=== PATIENT | male | born 1990 | race Caucasian/White ===

== ENCOUNTER 2021-06-06 19:59 | Inpatient (IN) | payer MEDICAID, OTHER ==
[~2021-06-06] VITALS: Ht 188 cm; Wt 84.7 kg
--- NOTE | 2021-06-06 20:50 | NUR ---
PT STATING HIS MEDICAL WAS NOT APPROVED AND WHEN CHECKING WITH REGISTRATION THEY STATED IT WAS. STATED HE COULD PAY CASTRO.
--- NOTE | 2021-06-06 21:00 | NUR ---
PT SITTING OUTSIDE, PERIODICALLY GETS UP, REDIRECTED AND FOLLOWING DIRECTIONS.
--- NOTE | 2021-06-06 21:12 | NUR ---
PT COVID NEGATIVE, MOVED INSIDE. PT VERY COOPERATIVE AND PLEASANT. ALTHOUGH STATEMENTS ARE CONTRIDICTING.
[2021-06-06 22:05] LABS: BASOPHILS % (AUTO) 0.5 % (0-1); EOSINOPHILS # (AUTO) 0.1 X10'3 (0-0.9); EOSINOPHILS % (AUTO) 0.9 % (0-6); HEMOGLOBIN 14.8 g/dl (14.0-17.9); LYMPHOCYTES # (AUTO) 2.5 X10'3 (1.1-4.8); MEAN CORPUSCULAR HEMOGLOBIN 29.2 PG (27.0-31.0); MEAN CORPUSCULAR HGB CONC 34.5 g/dL (33.0-36.5); MEAN CORPUSCULAR VOLUME 84.7 FL (78-98); MEAN PLATELET VOLUME 6.9 FL (7.4-10.4); MONOCYTES # (AUTO) 0.6 X10'3 (0-0.9); MONOCYTES % (AUTO) 7.1 % (2-12); NEUTROPHILS # (AUTO) 4.9 X10'3 (1.8-7.7); NEUTROPHILS % (AUTO) 60.5 % (42-75); PLATELET COUNT 388 X10'3 (140-440); RED BLOOD COUNT 5.07 X10'6 (4.70-6.10); RED CELL DISTRIBUTION WIDTH 13.2 % (11.5-14.5); WHITE BLOOD COUNT 8.1 X10'3 (4.5-11.0)
[2021-06-06 22:36] LABS: ALANINE AMINOTRANSFERASE 39 U/L (12-78); ALBUMIN 4.3 G/DL (3.4-5.0); ALBUMIN/GLOBULIN RATIO 1.2 (1.1-1.5); ALKALINE PHOSPHATASE 84 IU/L (46-116); ANION GAP 11 (8-16); ASPARTATE AMINO TRANSFERASE 21 U/L (10-37); BILIRUBIN,TOTAL 0.6 MG/DL (0.1-1.0); BLOOD UREA NITROGEN 15 MG/DL (7-18); BUN/CREATININE RATIO 15.5 (5.4-32.0); CALCIUM 9.4 MG/DL (8.5-10.1); CHLORIDE 108 MMOL/L (99-107); CREATININE 0.97 MG/DL (0.60-1.10); ETHANOL < 0.010 GM/DL (0.0-0.010); GLUCOSE 96 MG/DL (70-104); POTASSIUM 4.6 MMOL/L (3.5-5.1); SODIUM 144 MMOL/L (135-145); TOTAL CARBON DIOXIDE 24.8 MMOL/L (24-32); TOTAL PROTEIN 7.9 G/DL (6.4-8.2); eGFR 90 ML/MIN
[2021-06-06] MEDS ORDERED: NO HOME MEDS (22:36)
--- NOTE | 2021-06-06 22:36 | NUR ---
The patient is a 30 year old male who was brought in on a 5150 for being a danger to himself. His family reports he appeared to be resonding to internal stimuli and that he had difficulty answering questions. The patient was cooperative with the assessment but his replies were very delayed and he admits to A/V hallucinations. He stated that he has been seeing ghosts. He also stated he feels confused. He reports drinking earlier in the evening. He stated that his father yesterday of covid. He reports being suicidal for the past 12 hours and his plan is to hang himself. He reports no food intake for past 3-5 days and he has not been sleeping for over a week. He estimated that he has had a total of 8 hours sleep in the last week. He denies prior psychiatric hospitalizations. He denies being on any medications.
[2021-06-06 22:37] LABS: URINE AMPHETAMINE SCREEN NEGATIVE (Neg); URINE BARBITUATE SCREEN NEGATIVE (Neg); URINE BENZODIAZEPINES SCREEN NEGATIVE (Neg); URINE CANNABINOID SCREEN NEGATIVE (Neg); URINE COCAINE SCREEN NEGATIVE (Neg); URINE METHADONE SCREEN NEGATIVE (Neg); URINE OPIATE SCREEN NEGATIVE (Neg); URINE PHENCYCLIDINE SCREEN NEGATIVE (Neg)
[2021-06-06] MEDS ORDERED: OLANZapine 5mg rapidly disint. tablet PO ONE (22:50)
--- NOTE | 2021-06-06 22:56 | NUR ---
Packet sent to [facility]
--- NOTE | 2021-06-06 23:34 | NUR ---
The patient appears to be sleeping at this time.
--- NOTE | 2021-06-07 00:38 | NUR ---
The patient appears to be sleeping
--- NOTE | 2021-06-07 02:46 | NUR ---
The patient appears to be sleeping
--- NOTE | 2021-06-07 03:57 | NUR ---
The patient appears to be sleeping
--- NOTE | 2021-06-07 05:32 | NUR ---
The patient appears to have slept during the night after taking Zyprexa Zydis
--- NOTE | 2021-06-07 19:31 | NUR ---
Pt awake reading in bed. Pleasant and cooperative denied any needs.
[2021-06-07] MEDS: OLANZAPINE 5 MG TABLET PO SCH (20:29)
--- NOTE | 2021-06-07 22:04 | NUR ---
Pt said he has taken Florien in the past but does not want to take it again. He agreed to take Zyprexa. Pt is aware of his diagnosis of Bipolar but he disagrees "My mood swings are the same as everybody has" Pt admits to hearing voices but said quietly "I don't feel comfortable describing them" Pt sleeping at this time.
--- NOTE | 2021-06-08 00:33 | NUR ---
Pt read for awhile before going to sleep. He appeared to continue to sleep through a very noisy confused pt.
--- NOTE | 2021-06-08 04:26 | NUR ---
Sleeping at this time.
--- NOTE | 2021-06-08 08:14 | NUR ---
0600 received report from Nicky FARLEY, patient resting at shift change, per Nicky FARLEY patient father most recently of Covid, racheln does have a MH history althought patient denies. Patient has taken [place] in the past but states it really was not for him. 0815n patient still resting in bed
--- NOTE | 2021-06-08 08:52 | NUR ---
0850 Patient sitting up in bed ate 100% of breakfast. Patient is oriented to name and that he is in a hospital only. When asked if he thought his food was posioned at home patient stated yes, when asked if he thought the food here was posioned, patient states no. Patient states that he is open to treatment although sleep helps a lot and he slept last night. When asked if he had any new medical issues patient states that he has a left side ulcer from doing leg lift before he arrived in the hospital. Patient has a long delay in answering questions.
--- NOTE | 2021-06-08 11:34 | NUR ---
Patient is sitting on side of bed starring at the ground, patientlooked up at this card writer hand with wide eyes and asked for some food that has wrapper on them, This card writer hand brought patient yogurt, wrapped sandwhich and wrapper crackers. Patient is actively eating.
--- NOTE | 2021-06-08 11:37 | NUR ---
Pateint is sitting on the side of his bed, just starring at the ground, patient stated that he is hungry and would like some wrapped food, this quality analyst/technical writer was able to get Rohit a wrapped sandwhich, crackers and some Yogurt. Patient is eating
--- NOTE | 2021-06-08 13:24 | NUR ---
1320 Patient is awake and eating lunch, Alert to name and place only
--- NOTE | 2021-06-08 15:52 | NUR ---
Patient is resting in his bed, when this writter approached patient asked "can I trouble you for some water", this sign writer letterer or painter filled up water pitcher and advised that his mother called eariler and is coming to visit in the next few hours, patient seemed happy about his mother visiting. Patient is still rubbing his "ulcer" on the outside of his shirt on the left rib area, "this is from posturing" prn offered patient declined
--- NOTE | 2021-06-08 17:21 | NUR ---
Patient laying in bed with eyes open, patient mother came to visit, patient was happy to have his mom visit. Patient mother brought in outside food for patient and was told we can't give pateint outside food. Patient ended up sneaking the small bag of chips out of his mother purse while she was talking with staff. Patient mother felt taken advantage of by her son and choose to cut the visit short. Rohit did not seem to mind he was just happy "this I got to do what I wanted to and no one is going to tell me I can't eat snacks". Patient was remined that there is no out side food brought to the overflow unit as well as [facility]. It is just a policy.
--- NOTE | 2021-06-08 20:00 | NUR ---
One to one with the patient who stated that he is feeling much better than when admitted. He stated that his mood was "fine but I'm just a little antsy" He currently denies being suicidal. He reports visual hallucinations at times. He also reports that he has some voices and paranoia. When asked how his thinking was he replied, "probably a little clustered" The patient has been very pleasant and social with peers and staff. He has not had any behaviors that have required redirection.
[2021-06-08] MEDS: OLANZAPINE 5 MG TABLET PO SCH (20:35)
--- NOTE | 2021-06-08 21:56 | NUR ---
The patient appears to be sleeping at this time.
--- NOTE | 2021-06-08 23:32 | NUR ---
The patient appears to be sleeping
--- NOTE | 2021-06-09 01:06 | NUR ---
The patient appears to be sleeping
--- NOTE | 2021-06-09 03:04 | NUR ---
The patient appears to be sleeping
--- NOTE | 2021-06-09 04:41 | NUR ---
The patient appears to be sleeping
--- NOTE | 2021-06-09 07:07 | NUR ---
Patient sleeping supine with mask on. No distress observed. Continue to monitor.
--- NOTE | 2021-06-09 08:10 | NUR ---
RN spoke to patient in his room. Patient denies suicidal ideation. RN advised patient how sorry she was that his father . Patient started crying but go control. Patient now calm. Continue to monitor.
[2021-06-09] MEDS ORDERED: acetaminophen 325mg tablet PO ONE (09:55)
--- NOTE | 2021-06-09 10:08 | NUR ---
Gave patient Tylenol for a ALBA. Continue to monitor.
--- NOTE | 2021-06-09 11:50 | NUR ---
Patient ambulatory to BR, steady gait. No distress observed. Continue to monitor.
--- NOTE | 2021-06-09 12:43 | NUR ---
Patient sitting up in bed. No distress observed. Continue to monitor.
[2021-06-09 13:30] VITALS: BP 146/85
[2021-06-09] MEDS ORDERED: acetaminophen 325mg tablet PO PRN ×2 (14:25)
[2021-06-09] MEDS ORDERED: mag hydrox/Alum hydrox/simeth 30ml oral suspension PO PRN (14:25)
[2021-06-09] MEDS ORDERED: loperamide 2mg capsule PO PRN (14:25)
--- NOTE | 2021-06-09 14:27 | NUR ---
Admission note: [facility]30 [facility] a 5150 for DTS/DTO escorted from overflow via security. Pt has intermittent thoughts of suicide and has been off of his medications. Pt had his father recently from Covid. Pt has slept of eaten in several days. Pt reports hearing voices. Pt has history of Bipolar disorder. His mother and stepfather brought him some food and pt became aggressive towards them stating "Your trying to poison me." Pt then tried to choke himself. Pt is DTS/DTO.
[2021-06-09] MEDS: OLANZAPINE 5 MG TABLET PO SCH (20:04)
[2021-06-09 20:21] VITALS: BP 94/53
--- NOTE | 2021-06-10 00:28 | NUR ---
Nursing Progress Note: Legal hold:5150 Client on voluntary/involuntary status for DTS/DTO Report received from nurse Luis FARLEY with use of SBAR[]. Why are they here: Assessment Pt admitted to [facility] today at 1330 on a 5150 for DTS/DTO escorted from overflow via security. Pt has intermittent thoughts of suicide and has been off of his medications. Pt had his father recently from Covid. Pt has slept of eaten in several days. Pt reports hearing voices. Pt has history of Bipolar disorder. His mother and stepfather brought him some food and pt became aggressive towards them stating "Your trying to poison me." Pt then tried to choke himself. Pt is DTS/DTO. What has happened this shift:Pt was up in the willson at shift change. Pt was friendly and med compliant. He did not socialize with his peers and atwe snack in his room. S/I, H/I: Pt has thoughts of suicide at times A/VH:denies Sleep:See sleep assessment ADL's:independent Group attendance:none Were meds taken:yes Any med S/Enone Mental Status Exam Appearance:dressed in green scrubs Eye contact:good Behavior:cooperative Speech:clear Mood: Pleasant, however guarded Affect: Blunted Thought process: Goal directed Thought Content: Some ongoing paranoid delusions Cognition: A&O X4 Insight: Poor Judgment: Fair Interventions PRN's used: None Therapeutic interventions: Maintained a safe and supportive environment, ensured contract for safety, provided clear and simple instructions, provided active listening and positive encouragement, attempted to orient to reality, encouraged participation on the unit, and maintained Q 15min safety checks. Restraints/seclusion/emergency medication: N/A Justification of Continued Inpatient Treatment: Per Dr. Purvis, pt. requires medication adjustments and a safe and supportive environment.
[2021-06-10 07:44] LABS: CHOL/HDL RATIO 4.8 (0.00-4.99); CHOLESTEROL 186 MG/DL (0-200); HDL CHOLESTEROL 39 MG/DL (35-60); LDL CHOLESTEROL 113 MG/DL (50-100); TRIGLYCERIDES 202 MG/DL (20-135)
[2021-06-10 07:46] LABS: HEMOGLOBIN A1C 5.7 % (4.5-6.2)
[2021-06-10 08:00] VITALS: BP 140/81
--- NOTE | 2021-06-10 15:15 | NUR ---
Nursing Progress Note: Legal hold:5150 Client on voluntary/involuntary status for DTS/DTO Report received from nurse Luis FARLEY with use of SBAR[]. Why are they here: Assessment Pt admitted to [facility] today at 1330 on a 5150 for DTS/DTO escorted from overflow via security. Pt has intermittent thoughts of suicide and has been off of his medications. Pt had his father recently from Covid. Pt has slept of eaten in several days. Pt reports hearing voices. Pt has history of Bipolar disorder. His mother and stepfather brought him some food and pt became aggressive towards them stating "Your trying to poison me." Pt then tried to choke himself. Pt is DTS/DTO. What has happened this shift: Patient was asleep at change of shift and up for breakfast. Patient is pleasant. No meds for patient during the day. Patient denies suicidal/homicidal ideation. Patient states he is hearing voices but nothing telling him to harm himself "just voices." Patient asked for more information about his rights. RN gave patient a patient's rights handbook. Patient isolates, reads and does not appear to socialize. Patient states he is doing fine. Patient did not present with any paranoid behavior. S/I, H/I: denies A/VH: hearing voices, no command hallucinations Sleep: took an afternoon nap ADL's:independent Group attendance:no groups Were meds taken:yes Any med S/Enone Mental Status Exam Appearance:dressed in green scrubs Eye contact:good Behavior:cooperative Speech:clear Mood: Pleasant, reserved Affect: flat Thought process: Goal directed Thought Content: going home Cognition: A&O X4 Insight: Poor Judgment: Fair Interventions PRN's used: None Therapeutic interventions: Maintained a safe and supportive environment, ensured contract for safety, provided clear and simple instructions, provided active listening and positive encouragement, attempted to orient to reality, encouraged participation on the unit, and maintained Q 15min safety checks. Restraints/seclusion/emergency medication: N/A Justification of Continued Inpatient Treatment: Per Dr. Purvis, pt. requires medication adjustments and a safe and supportive environment.
[2021-06-10] MEDS: OLANZAPINE 5 MG TABLET PO SCH (20:09)
[2021-06-10] MEDS: lithium carbonate 150mg capsule PO SCH (20:10)
[2021-06-10] MEDS: risperiDONE 0.5mg tablet PO SCH (20:10)
[2021-06-10 20:24] VITALS: BP 140/80
--- NOTE | 2021-06-11 00:17 | NUR ---
Nursing Progress Note: Legal hold:5150 Client on voluntary/involuntary status for DTS/DTO Report received from nurse Luis FARLEY with use of SBAR[]. Why are they here: Assessment Pt admitted to [facility] today at 1330 on a 5150 for DTS/DTO escorted from overflow via security. Pt has intermittent thoughts of suicide and has been off of his medications. Pt had his father recently from Covid. Pt has slept of eaten in several days. Pt reports hearing voices. Pt has history of Bipolar disorder. His mother and stepfather brought him some food and pt became aggressive towards them stating "Your trying to poison me." Pt then tried to choke himself. Pt is DTS/DTO. What has happened this shift: Patient isolated to his room most of the shift. He ate snack in the group room then returned to his room. Pt was med compliant and cheerful denied any symptom of SI or AH.Pt stayed in his room the rest of the shift. S/I, H/I: denies A/VH: hearing voices, no command hallucinations Sleep: See sleep assessment ADL's:independent Group attendance:no groups Were meds taken:yes Any med S/Enone Mental Status Exam Appearance:dressed in green scrubs Eye contact:good Behavior:cooperative Speech:clear Mood: Pleasant, reserved Affect: flat Thought process: Goal directed Thought Content: going home Cognition: A&O X4 Insight: Poor Judgment: Fair Interventions PRN's used: None Therapeutic interventions: Maintained a safe and supportive environment, ensured contract for safety, provided clear and simple instructions, provided active listening and positive encouragement, attempted to orient to reality, encouraged participation on the unit, and maintained Q 15min safety checks. Restraints/seclusion/emergency medication: N/A Justification of Continued Inpatient Treatment: Per Dr. Purvis, pt. requires medication adjustments and a safe and supportive environment.
[2021-06-11 08:00] VITALS: BP 133/91
--- NOTE | 2021-06-11 14:36 | NUR ---
Met with Rohti yesterday to complete psychosocial assessment. Rohit is a 30 y/o single male who was initially placed on 5150 for danger to self by [employer]. Family called law enforcement because Rohit was making suicidal statements and was paranoid. He had not slept in days and his dad had just from Covid. Family had tried to offer assistance and Rhoit was paranoid and accused his step-father of trying to poison him and charged him. Rohit had made suicidal statements and tried to choke himself and refused to go to the hospital so family called law enforcement. He also experienced the loss of his grandfather recently. Rohit reported his father was in the hospital for 5 days prior to dying from Covid. He was paranoid and stated he was not sure if he really from Covid. Rohit had been living with his father in [place]. He stated he is not sure he wants to return there and does not feel like it would be safe for him. He was paranoid about senior grant writer and asked if we had met before. Later on he asked if senior grant writer knows his mom and was quite suspicious of senior grant writer. Rohit reported he was diagnosed with Bipolar age 22 or 23. He reported he has not been on medications for quite some time. He was recently seeing a therapist at [facility], however his therapist moved to [place]. He reported he would like to resume counseling with a male therapist. MSE: A/O: oriented x's 4 Appearance: 30 y/o male wearing green scrubs, good hygiene Behavior: cooperative, good eye contact Speech: WNL Mood: depressed Affect: blunted Thought Process: linear Thought Content: paranoid PLAN: [facility] will work with Rohit on a discharge plan and referrals to community resources. Called [facility] and Tejal is going to meet with him to assist with [facility] preble paperwork if Rohit is open to it. ESTELITA Small Addendum: 06/11/21 at 1439 by Pamela Jenkins Amended: Links added.
--- NOTE | 2021-06-11 16:37 | NUR ---
Nursing Progress Note: Legal hold:5150 Client on involuntary status for DTS/DTO Report received from nurse with use of SBAR: MARTINE Leonard Why are they here: Pt admitted to [facility] today at 1330 on a 5150 for DTS/DTO escorted from overflow via security. Pt has intermittent thoughts of suicide and has been off of his medications. Pt had his father recently from Covid. Pt has slept of eaten in several days. Pt reports hearing voices. Pt has history of Bipolar disorder. His mother and stepfather brought him some food and pt became aggressive towards them stating "Your trying to poison me." Pt then tried to choke himself. Pt is DTS/DTO. Assessment What has happened this shift: Received pt. sleeping in bed at the beginning of the shift, he awoke and was observed to be pacing the hallway. This commercial lines underwriter introduced self and established rapport, pt. presents as cooperative, anxious, restless, and withdrawn. Pt. attended breakfast in the Group Room with some direction and encouragement required by staff. 1:1 completed later at bedside, pt. denies any current S/I or H/I. However he admits to ongoing A/ALBA which he states are, "People talking nasty things about him." Also V/ALBA of, "Clouds like ghosts." However, pt. reports that since he has been sleeping better, these ALBA have decreased. When questioned regarding any thoughts that others may want to hurt him, pt. reports the paranoid delusion that random others may want to hurt him. He then states, "I hear other people saying nasty things about me here." This commercial lines underwriter provided active listening and positive encouragement to pt. and educated him to let staff know when he is feeling this way, and he reported understanding. Pt. remained withdrawn from others throughout the day, and was observed to be pacing the unit at intervals. However, pt. did attend the patio with others and reported he played basketball, will continue to monitor. S/I, H/I: Denies A/VH: Pt. reports ongoing A/ALBA which he states are, "People talking nasty things about him." Also V/ALBA of, "Clouds like ghosts." Sleep: Pt. reports he slept well, sleep hours are 7.5 ADL's: Requires some direction and encouragement Group attendance: N/A Were meds taken: Yes Any med S/E: None Mental Status Exam Appearance: Neat and appropriately dressed Eye contact: Good Behavior: Cooperative, anxious, restless, and withdrawn Speech: WNL Mood: Guarded Affect: Blunted Thought process: Linear with some abstract thinking Thought Content: Ongoing A/V/ALBA and paranoid delusions Cognition: A&O X4 Insight: Poor Judgment: Poor Interventions PRN's used: None Therapeutic interventions: Introduced self and established rapport, maintained a safe and supportive environment, ensured contract for safety, provided clear and simple instructions, attempted to orient to reality, and maintained Q 15min safety checks. Restraints/seclusion/emergency medication: N/A Justification of Continued Inpatient Treatment: Per JULIETTE Calle pt. requires medication adjustments and a safe and supportive environment.
[2021-06-11 20:00] VITALS: BP 142/89
[2021-06-11] MEDS: traZODone 50mg tablet PO PRN (20:22)
[2021-06-11] MEDS: OLANZAPINE 5 MG TABLET PO SCH (20:22)
[2021-06-11] MEDS: lithium carbonate 150mg capsule PO SCH (20:23)
[2021-06-11] MEDS: risperiDONE 0.5mg tablet PO SCH (20:23)
--- NOTE | 2021-06-12 02:54 | NUR ---
Nursing Progress Note: Rohit Legal hold:5150 Client on involuntary status for DTS/DTO Report received from nurse with use of SBAR: Luis FARLEY Why are they here: Pt admitted to [facility] today at 1330 on a 5150 for DTS/DTO escorted from overflow via security. Pt has intermittent thoughts of suicide and has been off of his medications. Pt had his father recently from Covid. Pt has slept of eaten in several days. Pt reports hearing voices. Pt has history of Bipolar disorder. His mother and stepfather brought him some food and pt became aggressive towards them stating "Your trying to poison me." Pt then tried to choke himself. Pt is DTS/DTO. Assessment What has happened this shift: Received pt. sitting in his room in a chair. Pt very polite with 1:1 assessment. States slight depression due to losing his dad and dog within a months time. States, He is just trying to deal with it. He states he feels better since hes been here and being able to get some sleep. He states +AH, hearing lots of voices and noise. Pt appears depressed and isolates to room. S/I, H/I: Denies A/VH: Pt. reports ongoing AH "Lots of noises and voices Sleep: ADL's: Requires some direction and encouragement Group attendance: N/A Were meds taken: Yes Any med S/E: None Mental Status Exam Appearance: Neat and appropriately dressed Eye contact: Good Behavior: Cooperative, anxious, restless, and withdrawn Speech: WNL Mood: Guarded, depressed Affect: Blunted Thought process: Linear with some abstract thinking Thought Content: Ongoing A/V/ALBA and paranoid delusions Cognition: A&O X4 Insight: Poor Judgment: Poor Interventions PRN's used: None Therapeutic interventions: Introduced self and established rapport, maintained a safe and supportive environment, ensured contract for safety, provided clear and simple instructions, attempted to orient to reality, and maintained Q 15min safety checks. Restraints/seclusion/emergency medication: N/A Justification of Continued Inpatient Treatment: Per JULIETTE Calle pt. requires medication adjustments and a safe and supportive environment.
[2021-06-12 07:43] VITALS: BP 115/77
--- NOTE | 2021-06-12 09:49 | NUR ---
Initial: Pt admit on a 5150 for danger to self. Currently on a regular diet documented with 100% PO intake throughout LOS meeting estimated nutrient needs. LBM 06/11. No documented edema or wounds. No nutrition diagnosis at this time. Will continue to follow. Recommendations: 1) Continue regular diet 2) Offer snacks for satiety; monitor need for additional protein 3) Bowel care PRN 4) Weekly scaled weights Addendum: 06/12/21 at [address] Amended: Links added.
--- NOTE | 2021-06-12 14:26 | NUR ---
Spoke to Rohit's mom, Becca (ph# [phone]). She reported Rohit can live with her upon discharge. She reported Rohit's father last and by Sat his dad's ex-girlfriend wanted Rohit to move out of the house because she is going to sell it. Answered her questions and provided support regarding hospitalization and discharge process. Becca reported Rohit has been quite paranoid with her over the phone and she stated he is no where near his baseline currently. ESTELITA Small
--- NOTE | 2021-06-12 15:48 | NUR ---
Nursing Progress Note: Legal hold:5150 Client on involuntary status for DTS/DTO Report received from nurse with use of SBAR: MARTINE Leonard Why are they here: Pt admitted to [facility] for [facility] health today at 1330 on a 5150 for DTS/DTO escorted from overflow via security. Pt has intermittent thoughts of suicide and has been off of his medications. Pt had his father recently from Covid. Pt has slept of eaten in several days. Pt reports hearing voices. Pt has history of Bipolar disorder. His mother and stepfather brought him some food and pt became aggressive towards them stating "Your trying to poison me." Pt then tried to choke himself. Pt is DTS/DTO. Assessment What has happened this shift: Received pt. sleeping in bed at the beginning of the shift, he awoke and attended breakfast in the Group Room with some encouragement from staff. 1:1 completed later at bedside, pt. continues to be slightly guarded with conversation, however is able to express himself clearly and remains pleasant. He continues to deny any S/I, however states, "I'm still feeling down." When questioned regarding H/I, pt. admits to having some thoughts towards random others, he states, "When I feel like they are messing with me, or when I feel like I need to jump in and assist with staff" (this is in reference to an occurrence that happened on the unit last night). Pt's thought process remains linear with some abstract thinking, and he admits to ongoing A/ALBA which he states are, "People talking nasty things about me which antagonize me." He denies any V/ALBA this shift. Pt. also admits to ongoing paranoid thoughts that random others may want to hurt him. This commercial underwriter again provided active listening and positive encouragement to pt. and educated him to let staff know when he is feeling this way, and he reported understanding. Pt. reported a H/A and PRN Tylenol administered with effectiveness. Pt. continues to remain mostly withdrawn from others, and stays in his room reading inspirational quotes out of a book that his family got him. This commercial underwriter and JULIETTE Calle spoke with pt's mother on the telephone per his permission. S/I, H/I: H/I towards random people, no plan A/VH: Pt. reports ongoing A/ALBA which he states are, "People talking nasty things about him." Sleep: Pt. reports he slept well, sleep hours are 8, and he naps intermittently during the shift ADL's: Requires some encouragement Group attendance: N/A Were meds taken: Yes Any med S/E: None Mental Status Exam Appearance: Neat and appropriately dressed Eye contact: Good Behavior: Cooperative, anxious, restless, and withdrawn Speech: WNL Mood: Guarded Affect: Blunted Thought process: Linear with some abstract thinking Thought Content: Ongoing A/ALBA and paranoid delusions Cognition: A&O X4 Insight: Fair Judgment: Fair Interventions PRN's used: Tylenol Therapeutic interventions: Maintained a safe and supportive environment, ensured contract for safety, provided clear and simple instructions, attempted to orient to reality, provided active listening and positive encouragement, and maintained Q 15min safety checks. Restraints/seclusion/emergency medication: N/A Justification of Continued Inpatient Treatment: Per JULIETTE Calle pt. requires medication adjustments and a safe and supportive environment. Addendum: 06/12/21 at 1736 by Jacklyn Prado RN Pt. reported increased dizziness at HS r/t to taking PRN Trazodone last night. This was endorsed to JULIETTE Calle.
[2021-06-12 19:27] VITALS: BP 124/77
[2021-06-12] MEDS: risperiDONE 2mg tablet PO SCH (20:15)
[2021-06-12] MEDS: OLANZAPINE 5 MG TABLET PO SCH (20:15)
[2021-06-12] MEDS: lithium carbonate 150mg capsule PO SCH (20:16)
--- NOTE | 2021-06-13 01:04 | NUR ---
Nursing Progress Note: Rohit Legal hold:5150 Client on involuntary status for DTS/DTO Report received from nurse with use of SBAR: Nupur FARLEY Why are they here: Pt admitted to [facility] for [facility] health today at 1330 on a 5150 for DTS/DTO escorted from overflow via security. Pt has intermittent thoughts of suicide and has been off of his medications. Pt had his father recently from Covid. Pt has slept of eaten in several days. Pt reports hearing voices. Pt has history of Bipolar disorder. His mother and stepfather brought him some food and pt became aggressive towards them stating "Your trying to poison me." Pt then tried to choke himself. Pt is DTS/DTO. Assessment What has happened this shift: Received pt. in room sitting on the chair. Pt stood up when I approached him and was polite and cooperative. Pt states + SI with no plan and + AH stating that voices are telling me nasty things about me. Pt states he is feeling better that he got some good sleep last night, and states his appetite is good. He also shared that he got to shed some tears last night which also helped him feel better. Pt showed this RN some positive affirmation quotes in his room as a reminder for him that he can keep a positive attitude and looks forward to the future. Pt up for snacks, took all HS medication and went to bed. S/I, H/I: +SI with no plan A/VH: Pt. reports ongoing A/ALBA which he states are, "People talking nasty things about him." Sleep: Pt. ADL's: Requires some encouragement Group attendance: N/A Were meds taken: Yes Any med S/E: None Mental Status Exam Appearance: Neat and appropriately dressed Eye contact: Good Behavior: Cooperative, anxious, restless, and withdrawn Speech: WNL Mood: Guarded Affect: Blunted Thought process: Linear with some abstract thinking Thought Content: Ongoing A/ALBA and paranoid delusions Cognition: A&O X4 Insight: Fair Judgment: Fair Interventions PRN's used: Tylenol Therapeutic interventions: Maintained a safe and supportive environment, ensured contract for safety, provided clear and simple instructions, attempted to orient to reality, provided active listening and positive encouragement, and maintained Q 15min safety checks. Restraints/seclusion/emergency medication: N/A Justification of Continued Inpatient Treatment: Per JULIETTE Calle pt. requires medication adjustments and a safe and supportive environment.
[2021-06-13 07:59] VITALS: BP 115/79
--- NOTE | 2021-06-13 15:21 | NUR ---
Nursing Progress Note: Legal hold:5150 Client on involuntary status for DTS/DTO Report received from nurse with use of SBAR: MARTINE Flores Why are they here: Pt admitted to [facility] for [facility] health today at 1330 on a 5150 for DTS/DTO escorted from overflow via security. Pt has intermittent thoughts of suicide and has been off of his medications. Pt had his father recently from Covid. Pt has slept of eaten in several days. Pt reports hearing voices. Pt has history of Bipolar disorder. His mother and stepfather brought him some food and pt became aggressive towards them stating "Your trying to poison me." Pt then tried to choke himself. Pt is DTS/DTO. Assessment What has happened this shift: Received pt asleep in bed. Pt awoke for breakfast. Pt does not interact with peers and only to staff when we initiate conversation. Pt is suspicious and paranoid upon approach. Pt guarded and does not freely talk with staff. Interventions today focused on establishing trust with some headway made by granting requests for water and other unit items. Pt spends most of the day lying awake on his bed. S/I, H/I: Denies A/VH: Pt. refused to discuss any hallucinations, but appears internally preoccupied. and due to paranoia towards staff, likely hearing voices saying staff are not to be trusted. Sleep: Pt. reports he slept well, sleep hours are 7.5 ADL's: Requires some direction and encouragement Group attendance: N/A Were meds taken: Yes Any med S/E: None Mental Status Exam Appearance: Neat and appropriately dressed Eye contact: Good Behavior: Cooperative, anxious, restless, and withdrawn Speech: WNL Mood: Guarded Affect: Blunted Thought process: Linear with some abstract thinking Thought Content: Ongoing A/V/ALBA and paranoid delusions Cognition: A&O X4 Insight: Poor Judgment: Poor Interventions PRN's used: None Therapeutic interventions: Introduced self and established rapport, maintained a safe and supportive environment, ensured contract for safety, provided clear and simple instructions, attempted to orient to reality, and maintained Q 15min safety checks. Restraints/seclusion/emergency medication: N/A Justification of Continued Inpatient Treatment: Per JULIETTE Calle pt. requires medication adjustments and a safe and supportive environment.
[2021-06-13 19:00] VITALS: BP 109/76
[2021-06-13] MEDS: risperiDONE 2mg tablet PO SCH (20:21)
[2021-06-13] MEDS: OLANZAPINE 5 MG TABLET PO SCH (20:22)
[2021-06-13] MEDS: lithium carbonate 150mg capsule PO SCH (20:23)
--- NOTE | 2021-06-14 02:54 | NUR ---
Nursing Progress Note: Rohit Legal hold:5150 Client on involuntary status for DTS/DTO Report received from nurse with use of SBAR: Nupur FARLEY Why are they here: Pt admitted to [facility] for [facility] health today at 1330 on a 5150 for DTS/DTO escorted from overflow via security. Pt has intermittent thoughts of suicide and has been off of his medications. Pt had his father recently from Covid. Pt has slept of eaten in several days. Pt reports hearing voices. Pt has history of Bipolar disorder. His mother and stepfather brought him some food and pt became aggressive towards them stating "Your trying to poison me." Pt then tried to choke himself. Pt is DTS/DTO. Assessment What has happened this shift: Received pt lying in bed awake. Pt states +AH stating he hears the patients voices around him and hes just trying to deal with it. His depression/anxiety are about the same as yesterday. Hes been thinking about his dad today and memories of him are good. He states he has a lot to of work to do when he gets out of here and its not going to be pretty. He is med compliant and isolates to room. S/I, H/I: Denies A/VH: +AH stating I hear the patients voices and I just try to deal with it Sleep: ADL's: Requires some direction and encouragement Group attendance: N/A Were meds taken: Yes Any med S/E: None Mental Status Exam Appearance: Neat and appropriately dressed Eye contact: Good Behavior: Cooperative, anxious, restless, and withdrawn Speech: WNL Mood: Guarded Affect: Blunted Thought process: Linear with some abstract thinking Thought Content: Ongoing A/V/ALBA and paranoid delusions Cognition: A&O X4 Insight: Poor Judgment: Poor Interventions PRN's used: None Therapeutic interventions: Introduced self and established rapport, maintained a safe and supportive environment, ensured contract for safety, provided clear and simple instructions, attempted to orient to reality, and maintained Q 15min safety checks. Restraints/seclusion/emergency medication: N/A Justification of Continued Inpatient Treatment: Per JULIETTE Calle pt. requires medication adjustments and a safe and supportive environment.
[2021-06-14 08:00] VITALS: BP 123/70
[2021-06-14] MEDS: magnesium hydroxide 30ml (MOM) UD suspension PO PRN (09:28)
--- NOTE | 2021-06-14 15:51 | NUR ---
Nursing Progress Note: Legal hold: 5250 Client on involuntary status for DTS/DTO Report received from nurse with use of SBAR: Shalonda Davison RN Why are they here: Pt admitted to [facility] for Behavior[facility] health today at 1330 on a 5150 for DTS/DTO escorted from overflow via security. Pt has intermittent thoughts of suicide and has been off of his medications. Pt had his father recently from Covid. Pt has slept of eaten in several days. Pt reports hearing voices. Pt has history of Bipolar disorder. His mother and stepfather brought him some food and pt became aggressive towards them stating "Youre trying to poison me." Pt then tried to choke himself. Pt is DTS/DTO. Assessment What has happened this shift: Pt in bed at the change of shift. Met with RN at the bedside after breakfast. Pt is pleasant, smiling. States that he slept well last night and feels like the medications are helping with his sleep, but that he still feels overwhelmed by multiple stressors and speaks vaguely about those stressors. When asked about symptoms of paranoia, pt states that the statements he made have some validity. Pt then spoke briefly about how he feels that multiple people stole his [employer]. When asked what their motive would be, he states they just dont want me to succeed. S/I, H/I: Denies A/VH: denies Sleep: 8.75 hours ADL's: independent Group attendance: N/A Were meds taken: all meds scheduled at HS Any med S/E: denies Mental Status Exam Appearance: Neat and appropriately dressed Eye contact: good Behavior: cooperative, isolates to his room Speech: WNL Mood: euthymic Affect: constricted with some brightening Thought process: linear with some paranoid delusions (vague) Thought Content: paranoid delusions and stressors Cognition: A&O X4 Insight: Poor Judgment: Poor Interventions PRN's used: MOM Therapeutic interventions: Introduced self and established rapport, maintained a safe and supportive environment, ensured contract for safety, provided clear and simple instructions, attempted to orient to reality, and maintained Q 15min safety checks. Restraints/seclusion/emergency medication: N/A Justification of Continued Inpatient Treatment: Per JULIETTE Calle pt. requires medication adjustments and a safe and supportive environment.
[2021-06-14 20:00] VITALS: BP 117/68
[2021-06-14] MEDS: risperiDONE 2mg tablet PO SCH (20:29)
[2021-06-14] MEDS: OLANZAPINE 5 MG TABLET PO SCH (20:30)
[2021-06-14] MEDS: lithium carbonate 150mg capsule PO SCH (20:30)
--- NOTE | 2021-06-15 02:57 | NUR ---
Nursing Progress Note: Rohit Legal hold: 5250 Client on involuntary status for DTS/DTO Report received from nurse with use of SBAR: Nupur FARLEY Why are they here: Pt admitted to [facility] for [facility] health today at 1330 on a 5150 for DTS/DTO escorted from overflow via security. Pt has intermittent thoughts of suicide and has been off of his medications. Pt had his father recently from Covid. Pt has slept of eaten in several days. Pt reports hearing voices. Pt has history of Bipolar disorder. His mother and stepfather brought him some food and pt became aggressive towards them stating "Youre trying to poison me." Pt then tried to choke himself. Pt is DTS/DTO. Assessment What has happened this shift: Received pt lying in bed drawing. Approached pt for 1:1 assessment and he greeted this RN appropriately however he asked, Are you afraid of me? When this RN said no he stated good because I am not afraid of you either. Pt denies SI, however stated still having +AH and the voices are name calling. Pt stated he is journaling, working on puzzles and reading, anything to keep his mind busy and off his dad. Pt states slight depression with no anxiety. Pt up for snacks and took HS medication with no issues. S/I, H/I: Denies A/VH: +AH/States voices are name calling Sleep: ADL's: independent Group attendance: No Any med S/E: denies Mental Status Exam Appearance: Neat and appropriately dressed Eye contact: good Behavior: cooperative, isolates to his room Speech: WNL Mood: euthymic Affect: constricted with some brightening Thought process: linear with some paranoid delusions (vague) Thought Content: paranoid delusions and stressors Cognition: A&O X4 Insight: Poor Judgment: Poor Interventions PRN's used: Therapeutic interventions: Introduced self and established rapport, maintained a safe and supportive environment, ensured contract for safety, provided clear and simple instructions, attempted to orient to reality, and maintained Q 15min safety checks. Restraints/seclusion/emergency medication: N/A Justification of Continued Inpatient Treatment: Per JULIETTE Calle pt. requires medication adjustments and a safe and supportive environment.
[2021-06-15 07:35] VITALS: BP 121/62
[2021-06-15] MEDS: magnesium hydroxide 30ml (MOM) UD suspension PO PRN (11:43)
--- NOTE | 2021-06-15 14:56 | NUR ---
Nursing Progress Note: Legal hold:5150 Client on involuntary status for DTS/DTO Report received from nurse with use of SBAR: MARTINE Flores Why are they here: Pt admitted to [facility] for [facility] health today at 1330 on a 5150 for DTS/DTO escorted from overflow via security. Pt has intermittent thoughts of suicide and has been off of his medications. Pt had his father recently from Covid. Pt has slept of eaten in several days. Pt reports hearing voices. Pt has history of Bipolar disorder. His mother and stepfather brought him some food and pt became aggressive towards them stating "Your trying to poison me." Pt then tried to choke himself. Pt is DTS/DTO. Assessment What has happened this shift: Received pt asleep in bed. Pt awoke for breakfast. Pt does not interact with peers and only to staff when we initiate conversation. Pt is less suspicious upon approach. Pt remains somewhat guarded and does not freely talk with staff. Interventions today focused on establishing trust with some headway made by granting requests for water and other unit items. Pt spends most of the day sitting up awake on his bed. S/I, H/I: Denies A/VH: Pt. refused to discuss any hallucinations. Sleep: Pt. reports he slept well, sleep hours are 7.75 ADL's: Requires some direction and encouragement Group attendance: N/A Were meds taken: Yes Any med S/E: None Mental Status Exam Appearance: Neat and appropriately dressed Eye contact: Good Behavior: Cooperative, anxious, restless, and withdrawn Speech: WNL Mood: Guarded Affect: Blunted Thought process: Linear with some abstract thinking Thought Content: Ongoing A/V/ALBA and paranoid delusions Cognition: A&O X4 Insight: Poor Judgment: Poor Interventions PRN's used: MOM - no results yet Therapeutic interventions: Introduced self and established rapport, maintained a safe and supportive environment, ensured contract for safety, provided clear and simple instructions, attempted to orient to reality, and maintained Q 15min safety checks. Restraints/seclusion/emergency medication: N/A Justification of Continued Inpatient Treatment: Per JULIETTE Calle pt. requires medication adjustments and a safe and supportive environment.
[2021-06-15 19:27] VITALS: BP 126/73
[2021-06-15] MEDS: risperiDONE 0.5mg tablet PO SCH (20:33)
[2021-06-15] MEDS: OLANZAPINE 5 MG TABLET PO SCH (20:33)
[2021-06-15] MEDS: lithium carbonate 150mg capsule PO SCH (20:48)
--- NOTE | 2021-06-16 03:23 | NUR ---
Nursing Progress Note: Rohit Legal hold:5150 Client on involuntary status for DTS/DTO Report received from nurse with use of SBAR: Nupur FARLEY Why are they here: Pt admitted to [facility] for [facility] health today at 1330 on a 5150 for DTS/DTO escorted from overflow via security. Pt has intermittent thoughts of suicide and has been off of his medications. Pt had his father recently from Covid. Pt has slept of eaten in several days. Pt reports hearing voices. Pt has history of Bipolar disorder. His mother and stepfather brought him some food and pt became aggressive towards them stating "Your trying to poison me." Pt then tried to choke himself. Pt is DTS/DTO. Assessment What has happened this shift: Received pt. sitting in his room in a chair. Pt very polite with 1:1 assessment. Pt isolative to his room. Pt guarded during assessment, but was cooperative with HS medications. Pt fell asleep around 2130. S/I, H/I: Denies A/VH: Pt. reports ongoing AH "Lots of noises and voices Sleep: ADL's: Requires some direction and encouragement Group attendance: N/A Were meds taken: Yes Any med S/E: None Mental Status Exam Appearance: Neat and appropriately dressed Eye contact: Good Behavior: Cooperative, anxious, restless, and withdrawn Speech: WNL Mood: Guarded, depressed Affect: Blunted Thought process: Linear with some abstract thinking Thought Content: Ongoing A/V/ALBA and paranoid delusions Cognition: A&O X4 Insight: Poor Judgment: Poor Interventions PRN's used: None Therapeutic interventions: Introduced self and established rapport, maintained a safe and supportive environment, ensured contract for safety, provided clear and simple instructions, attempted to orient to reality, and maintained Q 15min safety checks. Restraints/seclusion/emergency medication: N/A Justification of Continued Inpatient Treatment: Per JULIETTE Calle pt. requires medication adjustments and a safe and supportive environment.
[2021-06-16 07:30] VITALS: BP 130/70
[2021-06-16] MEDS: magnesium hydroxide 30ml (MOM) UD suspension PO PRN (16:13)
--- NOTE | 2021-06-16 16:23 | NUR ---
Nursing Progress Note: Legal hold:5150 Client on involuntary status for DTS/DTO Report received from nurse with use of SBAR: MARTINE Flores Why are they here: Pt admitted to [facility] for Behavior[facility] health today at 1330 on a 5150 for DTS/DTO escorted from overflow via security. Pt has intermittent thoughts of suicide and has been off of his medications. Pt had his father recently from Covid. Pt has slept of eaten in several days. Pt reports hearing voices. Pt has history of Bipolar disorder. His mother and stepfather brought him some food and pt became aggressive towards them stating "Your trying to poison me." Pt then tried to choke himself. Pt is DTS/DTO. Assessment What has happened this shift: Patient was asleep at change of shift and up for breakfast. Patient isolates in his room most of the day. Patient is listening to headphones. Patient is quiet and polite. Patient is constipated and RN gave patient a prune juice and M.O.M. Patient said he has been emotional (sad) this morning and this afternoon thinking about his dad who less than 2 weeks ago. Patient denies SI/HI and denies A/V hallucinations. Patient denies paranoia but patient speaks to mother about being paranoid so RN believes patient is minimizing. S/I, H/I: Denies A/VH: Denies Sleep: No naps today but sometimes lays in bed awake. ADL's: Requires some direction and encouragement Group attendance: None today Were meds taken: Yes Any med S/E: None Mental Status Exam Appearance: Neat and appropriately dressed Eye contact: Good Behavior: Cooperative and withdrawn Speech: WNL Mood: Guarded Affect: Flat Thought process: Linear with paranoia Thought Content: Thinking about the loss of his dad Cognition: A&O X4 Insight: Poor Judgment: Poor Interventions PRN's used: MOM - no results yet Therapeutic interventions: Introduced self and established rapport, maintained a safe and supportive environment, ensured contract for safety, provided clear and simple instructions, attempted to orient to reality, and maintained Q 15min safety checks. Restraints/seclusion/emergency medication: N/A Justification of Continued Inpatient Treatment: Per JULIETTE Calle pt. requires medication adjustments and a safe and supportive environment.
--- NOTE | 2021-06-16 17:00 | NUR ---
Gave PO Ativan due to a lot of screaming in neighbor's room. Patient anxious.
[2021-06-16] MEDS: LORazepam 1 MG tablet PO PRN (17:02)
[2021-06-16 19:55] VITALS: BP 131/86
[2021-06-16] MEDS: lithium carbonate 150mg capsule PO SCH (20:38)
[2021-06-16] MEDS: risperiDONE 0.5mg tablet PO SCH (20:38)
[2021-06-16] MEDS: OLANZAPINE 5 MG TABLET PO SCH (20:38)
--- NOTE | 2021-06-17 01:50 | NUR ---
Nursing Progress Note: Legal hold:5150 Client on involuntary status for DTS/DTO Report received from nurse with use of SBAR: MARTINE Espitia Why are they here: Pt admitted to [facility] for Behavioral health today at 1330 on a 5150 for DTS/DTO escorted from overflow via security. Pt has intermittent thoughts of suicide and has been off of his medications. Pt had his father recently from Covid. Pt has slept of eaten in several days. Pt reports hearing voices. Pt has history of Bipolar disorder. His mother and stepfather brought him some food and pt became aggressive towards them stating "Your trying to poison me." Pt then tried to choke himself. Pt is DTS/DTO. Assessment What has happened this shift: Patient continues to isolate in his room and listen to music. He denies all mental health symptoms, including thoughts of suicide. He states he knows that grieving his father will take time. Denies any side effects to meds. No PRNs administered. Pt still has not had a bowel movement after MOM administration this am, denies any discomfort at this time. S/I, H/I: Denies A/VH: Denies Sleep: sleeps well ADL's: Indepedent Group attendance: N/A Were meds taken: Yes Any med S/E: None Mental Status Exam Appearance: wearing green scrubs, wearing a baseball cap, hygiene and grooming good Eye contact: Good Behavior: appropriate, remains isolative Speech: WNL Mood: euthymic Affect: blunted, smiles at times during conversation Thought process: Linear Thought Content: WNL, appropriate grieving Cognition: A&O X4 Insight: fair Judgment: fair Interventions PRN's used: none Therapeutic interventions: 1:1 assessment, maintained a safe and supportive environment, ensured contract for safety, medication administration and monitoring for effects and side effects, and maintained Q 15min safety checks. Restraints/seclusion/emergency medication: N/A Justification of Continued Inpatient Treatment: Per JULIETTE Calle pt. requires medication adjustments and a safe and supportive environment.
[2021-06-17 08:55] VITALS: BP 123/80
--- NOTE | 2021-06-17 11:16 | NUR ---
PROBABLE CAUSE HEARING Patients Name: Rohit Patricia Admission Date: 06/09/2021 Date of 5150: 06/06/2021 Written by: PENELOPE Criteria: DTS Summary of Facts: Rohit has intermittent thoughts of suicide and had been off of his medications for bipolar disorder due to his father passing has been feeling suicidal. Havent eaten or slept in days. Hearing voices, unable to completely answer questions. Date of 5250: 06/12/2021 Written by: Davian Criteria: GD Summary of Facts: Pt continues to be paranoid. Grieving. Mom and stepdad will provide third democrat assistance. Pt does not feel safe. Stated no place to return home. Diagnosis: bipolar with psychosis Behavior during past 48 HRS: Rohit denies auditory hallucinations but then says he hears engines revving up. He denies paranoia then talks about how gang members are after him. He isolates to his room a lot listening to music, he is appropriately grieving. He is cooperative, takes his medications. FOOD: 100% SLEEPIN ADLS: Ind INTERMEDIATE: With Mom MEDICATION DOSAGE FREQUENCY DURATION [place] 900 mg po q hs Risperdal 3 mg po q hs Zyprexa 15 mg po q hs Ativan 1 mg PRN last used yesterday
[2021-06-17] MEDS ORDERED: COVID-19 VACC, MRNA(PFIZER)/PF--BNT162b2 syringe IMVAC ONE (14:20)
--- NOTE | 2021-06-17 16:48 | NUR ---
Nursing Progress Note: Legal hold:5250 Client on involuntary status for DTS/DTO Report received from nurse with use of SBAR: MARTINE Flores Why are they here: [facility] at 1330 on a 5150 for DTS/DTO escorted from overflow via security. Pt has intermittent thoughts of suicide and has been off of his medications. Pt had his father recently from Covid. Pt has slept of eaten in several days. Pt reports hearing voices. Pt has history of Bipolar disorder. His mother and stepfather brought him some food and pt became aggressive towards them stating "Your trying to poison me." Pt then tried to choke himself. Pt is DTS/DTO. Assessment What has happened this shift: Patient was asleep at change of shift and up for breakfast. Patient isolates in his room most of the day. Patient is listening to headphones. Patient is quiet and polite. Patient denies SI/HI and denies A/V hallucinations. Patient states MOM helped, patient reports a large BM last evening. Patient denies paranoia but patient speaks to mother about being paranoid this remote mortgage underwriter believes patient is minimizing. 1400 this remote mortgage underwriter was in patient room doing 1:1 assessment on roommate, patient over her roommate stating that he felt like his fingers were being cut at night. Rohit jumped up out of bed and said wow I dont want my fingers cut, this remote mortgage underwriter reassured patient that he is safe here at [facility]. 1515 patient received Covid Vac 19 Pfizer, right deltoid, patient tolerated well, Vac card filled out and put with patients safety bag. Patient to return 07-10-21 for second vac in the liberty room here at [facility], patient voiced understanding 1545 patient 5250 was up held, patient states I will stay until I am discharged by the doctor, I guess a few more days. S/I, H/I: Denies A/VH: Denies Sleep: No naps today but sometimes lays in bed awake. ADL's: Requires some direction and encouragement Group attendance: None today Were meds taken: Yes Any med S/E: None Mental Status Exam Appearance: Neat and appropriately dressed with baseball cap Eye contact: Good Behavior: Cooperative and withdrawn Speech: WNL Mood: Guarded Affect: Flat Thought process: Linear with paranoia Thought Content: Thinking about the loss of his dad Cognition: A&O X4 Insight: Poor Judgment: Poor Interventions PRN's used: Therapeutic interventions: Introduced self and established rapport, maintained a safe and supportive environment, ensured contract for safety, provided clear and simple instructions, attempted to orient to reality, and maintained Q 15min safety checks. Restraints/seclusion/emergency medication: N/A Justification of Continued Inpatient Treatment: Patient is in need of in patient acute treatment for his mental illness, patient is minimizing his symptoms to this remote mortgage underwriter. Rohit needs more time on his medication to monitor for SE and efficacy. If released today patient would be at risk for re-admission.
[2021-06-17 19:19] VITALS: BP 133/76
[2021-06-17] MEDS: risperiDONE 0.5mg tablet PO SCH (20:08)
[2021-06-17] MEDS: lithium carbonate 150mg capsule PO SCH (20:10)
[2021-06-17] MEDS: OLANZAPINE 5 MG TABLET PO SCH (20:11)
[2021-06-17] MEDS: traZODone 50mg tablet PO PRN (20:12)
--- NOTE | 2021-06-17 20:45 | NUR ---
Nursing Progress Note: Legal hold:5150 Client on involuntary status for DTS/DTO Report received from nurse with use of SBAR: MARTINE Smith Why are they here: Pt admitted to [facility] today at 1330 on a 5150 for DTS/DTO escorted from overflow via security. Pt has intermittent thoughts of suicide and has been off of his medications. Pt had his father recently from Covid. Pt has slept of eaten in several days. Pt reports hearing voices. Pt has history of Bipolar disorder. His mother and stepfather brought him some food and pt became aggressive towards them stating "Your trying to poison me." Pt then tried to choke himself. Pt is DTS/DTO. Assessment What has happened this shift: Patient quietly reading book at beginning of shift. Patient says he is still feeling anxious from court today but doesn't want any PRN anxiety medications. Patient allows tech to get vitals and then takes a shower. Patient takes all medications without difficulty including PRN trazodone. Patient slept well. S/I, H/I: Denies A/VH: Denies Sleep: sleeps well ADL's: Independent Group attendance: N/A Were meds taken: Yes Any med S/E: None Mental Status Exam Appearance: wearing green scrubs, wearing a baseball cap, hygiene and grooming good Eye contact: Good Behavior: appropriate, remains isolative Speech: WNL Mood: euthymic Affect: blunted, smiles at times during conversation Thought process: Linear Thought Content: WNL, appropriate grieving Cognition: A&O X4 Insight: fair Judgment: fair Interventions PRN's used: Trazodone Therapeutic interventions: 1:1 assessment, maintained a safe and supportive environment, ensured contract for safety, medication administration and monitoring for effects and side effects, and maintained Q 15min safety checks. Restraints/seclusion/emergency medication: N/A Justification of Continued Inpatient Treatment: Per JULIETTE Calle pt. requires medication adjustments and a safe and supportive environment.
[2021-06-18 08:00] VITALS: BP 115/63
--- NOTE | 2021-06-18 14:08 | NUR ---
Pt. attended group today. The topic today was identifying the triggers, signs and symptoms of an upcoming episode/event so that Pts. can learn to apply coping skills before they get to a bad place with their symptoms. Pt was engaged in the group appropriately today. He listened intently and shared when asked. He was alert and oriented X 4. His thought content and thought process was WNL. He shared how he exercises and does yoga as ways to help him cope. He was also able to identify warning signs for when he knows he is starting to now feels well, he identified isolating as his major warning sign. Citlalli Albarado, D[place]
--- NOTE | 2021-06-18 16:29 | NUR ---
Nursing Progress Note: Legal hold:5250 Client on involuntary status for DTS/DTO Report received from nurse with use of SBAR: MARTINE Leonard Why are they here: Pt admitted to [facility] today at 1330 on a 5150 for DTS/DTO escorted from overflow via security. Pt has intermittent thoughts of suicide and has been off of his medications. Pt had his father recently from Covid. Pt has slept of eaten in several days. Pt reports hearing voices. Pt has history of Bipolar disorder. His mother and stepfather brought him some food and pt became aggressive towards them stating "Your trying to poison me." Pt then tried to choke himself. Pt is DTS/DTO. Assessment What has happened this shift: Patient was asleep at change of shift and up for breakfast. Patient isolates in his room most of the day. Patient is listening to headphones. Patient is quiet and polite. Patient denies SI/HI and denies A/V hallucinations. Patients room was closed today for a few hours, patient spent time pacing and going to group. 1500 patient asked for chicken broth and cracker for snack, he stated that he was not feeling well and that he thinks it is for the Covid Vac that he got yesterday. S/I, H/I: Denies A/VH: Denies Sleep: No naps today but sometimes lays in bed awake. ADL's: Requires some direction and encouragement Group attendance: None today Were meds taken: Yes Any med S/E: None Mental Status Exam Appearance: Neat and appropriately dressed with baseball cap Eye contact: Good Behavior: Cooperative and withdrawn Speech: WNL Mood: Guarded Affect: Flat Thought process: Linear with paranoia Thought Content: Thinking about the loss of his dad Cognition: A&O X4 Insight: Poor Judgment: Poor Interventions PRN's used: Therapeutic interventions: Introduced self and established rapport, maintained a safe and supportive environment, ensured contract for safety, provided clear and simple instructions, attempted to orient to reality, and maintained Q 15min safety checks. Restraints/seclusion/emergency medication: N/A Justification of Continued Inpatient Treatment: Patient is in need of in patient acute treatment for his mental illness, patient is minimizing his symptoms to this designer/writer. Rohit needs more time on his medication to monitor for SE and efficacy. If released today patient would be at risk for re-admission.
[2021-06-18] MEDS: risperiDONE 0.5mg tablet PO SCH (20:12)
[2021-06-18] MEDS: OLANZAPINE 5 MG TABLET PO SCH (20:12)
[2021-06-18] MEDS: lithium carbonate 150mg capsule PO SCH (20:13)
[2021-06-18 20:27] VITALS: BP 156/90
--- NOTE | 2021-06-19 04:57 | NUR ---
Nursing Progress Note: Legal hold:5250 Client on involuntary status for DTS/DTO Report received from nurse with use of SBAR: MARTINE Leonard Why are they here: Pt admitted to [facility] today at 1330 on a 5150 for DTS/DTO escorted from overflow via security. Pt has intermittent thoughts of suicide and has been off of his medications. Pt had his father recently from Covid. Pt has slept of eaten in several days. Pt reports hearing voices. Pt has history of Bipolar disorder. His mother and stepfather brought him some food and pt became aggressive towards them stating "Your trying to poison me." Pt then tried to choke himself. Pt is DTS/DTO. Assessment What has happened this shift: Patient awake sitting in room at start of shift. Appears somewhat anxious at times and isolates in his room. Pleasant and cooperative. Patient is guarded and offers up little information but responds appropriately to direct questions. S/I, H/I: Denies A/VH: Denies Sleep: See sleep assessment ADL's: Independent Group attendance: N/A Were meds taken: Yes Any med S/E: None noted or reported Mental Status Exam Appearance: Neat and appropriately dressed with baseball cap Eye contact: Good Behavior: Cooperative and withdrawn Speech: clear, normal rate/ volume Mood: Really good actually. I got some good news on the phone today. Affect: Blunted Thought process: Linear Thought Content: Happy about news he received over the phone. Cognition: A&O X4 Insight: Fair Judgment: Fair Interventions PRN's used: Therapeutic interventions: Introduced self and established rapport, maintained a safe and supportive environment, ensured contract for safety, provided clear and simple instructions, attempted to orient to reality, and maintained Q 15min safety checks. Restraints/seclusion/emergency medication: N/A Justification of Continued Inpatient Treatment: Patient is in need of in patient acute treatment for his mental illness, patient is minimizing his symptoms to this database report writer. Rohit needs more time on his medication to monitor for SE and efficacy. If released today patient would be at risk for re-admission.
[2021-06-19 08:00] VITALS: BP 118/56
[2021-06-19] MEDS: LORazepam 1 MG tablet PO PRN (09:15)
[2021-06-19] MEDS ORDERED: RISP3TAB63 PO (10:43)
[2021-06-19] MEDS ORDERED: TRAZ-251 PO (10:43)
[2021-06-19] MEDS ORDERED: LITH300T5 PO (10:43)
--- NOTE | 2021-06-19 12:36 | NUR ---
Reassessment: Pt continues w/ adequate PO intake, eating 100% of meals on regular diet. LBM 06/18. No nutrition diagnosis at this time. Will continue to follow. Recommendations: 1) Continue regular diet 2) Offer snacks for satiety; monitor need for additional protein 3) Bowel care PRN 4) Weekly scaled weights Addendum: 06/19/21 at [address] Amended: Links added.
--- NOTE | 2021-06-19 12:50 | NUR ---
Patient discharged from unit at 1227. Belongings inventoried and returned to patient by tech. Discharge instructions and medications reviewed by this junior underwriter, patient reported understanding. Medication prescription and covid vaccination card given to patient. Patient is able to contract for safety. He was escorted to his parents in the main lobby who will be driving him home.
== END 2021-06-19 13:20 | disposition home or self-care (01) | DRG 753 ==
LOC: ER 20:02 → ED HOLD 06-09 09:30 → ADULT MH 06-09 13:04
PROVIDERS: ADMIT Psychiatry & Neurology Psychiatry; ATTEND Psychiatry & Neurology Psychiatry
DX: F31.5 Bipolar disorder, current episode depressed, severe, with psychotic features (principal); R45.851 Suicidal ideations; Z91.14 Patient's other noncompliance with medication regimen; F43.0 Acute stress reaction; Z20.822 Contact with and (suspected) exposure to COVID-19; R45.89 Other symptoms and signs involving emotional state; F60.0 Paranoid personality disorder; R45.87 Impulsiveness; F40.240 Claustrophobia; R63.0 Anorexia; Z68.24 Body mass index [BMI] 24.0-24.9, adult; Z88.5 Allergy status to narcotic agent; Z87.891 Personal history of nicotine dependence; Z88.8 Allergy status to other drugs, medicaments and biological substances; Z56.0 Unemployment, unspecified; Z79.899 Other long term (current) drug therapy; Z91.5 Personal history of self-harm
CPT/HCPCS: 36415; 80053; 80061; 80178; 80305; 80320; 83036; 84443; 85025; 87081; 87635; 91300; 99285; C9803